=== PATIENT | male | born 1955 | race Caucasian/White ===

== ENCOUNTER → 2017-06-10 | Outpatient (CLI) | payer OTHER ==
[~2017-06-10] MED LIST: ZYVOX600 MG PO
--- NOTE | 2017-06-10 17:12 | Diagnostic Imaging Report ---
PROCEDURE:X-RAY ABDOMEN - KUB COMPARISON:KUB 01/01/2017 INDICATIONS:HISTORY OF KIDNEY STONES FINDINGS: There is a non-obstructed bowel-gas pattern. There are no calcifications projected over the renal shadows, expected course of the ureters or bladder. There are no acute osseous abnormalities. The lung bases are clear. CONCLUSION: Normal abdominal radiograph. Dictated by: Jose Alfredo Pickard M.D. on 06/10/2017 at 17:12 Electronically approved by: Jose Alfredo Pickard M.D. on 06/10/2017 at 17:12
== END ==
LOC: RAD 16:27
PROVIDERS: ATTEND Urology
DX: N20.0 Calculus of kidney (principal)
CPT/HCPCS: 74018

== ENCOUNTER → 2017-08-14 | Outpatient (CLI) | payer OTHER ==
--- NOTE | 2017-08-14 09:06 | Diagnostic Imaging Report ---
TECHNIQUE: Magnetic resonance imaging of the LEFT KNEE was performed WITHOUT injected contrast. HISTORY: Left knee pain COMPARISON: None available. FINDINGS: LIGAMENTS AND TENDONS: ACL: Intact PCL: Intact Collateral ligaments: Intact Iliotibial band: Unremarkable Popliteal tendon: Intact Extensor mechanism: Intact JOINT: Menisci: Medial: Degenerative signal. Degeneration and partial tearing of the posterior root attachment coronal image 17 and axial image 22. Lateral: Degenerative signal without discrete tear. Articular Cartilage: Medial Compartment: Cartilage thinning without focal defect. Lateral Compartment: Cartilage thinning without focal defect Patellofemoral Compartment: Cartilage thinning without focal defect. Joint Fluid: The amount of fluid within the joint is within physiologic limits. BONE: No focal or infiltrative bone marrow replacing abnormality. No acute fracture. SOFT TISSUES: Otherwise, unremarkable. IMPRESSION: Medial meniscus posterior root attachment degeneration and partial tearing. Tricompartmental partial thickness cartilage loss. Signed by: Dr. Napoleon Green M.D. on 08/14/2017 9:02 AM
== END ==
LOC: MRI 07:20
PROVIDERS: ATTEND Specialist
DX: S83.242A Other tear of medial meniscus, current injury, left knee, initial encounter (principal)

== ENCOUNTER → 2017-08-26 | Day surgery (SDC) | payer OTHER ==
[2017-08-25 16:07] LABS: ANION GAP 14.7 mmol/L (8-16); BLOOD UREA NITROGEN 9 mg/dL (7-26); BUN/CREATININE RATIO 11 (6-25); CALCIUM 9.8 mg/dL (8.4-10.2); CARBON DIOXIDE 27 mmol/L (22-29); CHLORIDE 105 mmol/L (98-107); CREATININE, SERUM 0.79 mg/dL (0.72-1.25); EST GLOMERULAR FILTRATION RATE > 60 ML/MIN (60-); GLUCOSE 96 mg/dL (74-118); POTASSIUM 4.7 mmol/L (3.5-5.1); SODIUM 142 mmol/L (136-145)
--- NOTE | 2017-08-25 16:37 | Diagnostic Imaging Report ---
PROCEDURE: Frontal and lateral views of the chest. COMPARISON: Patients [facility], , CHEST 2 VIEWS, 03/09/2013, 22:21. INDICATIONS: PRE-OPERATIVE CHEST X-RAY FOR LEFT KNEE SURGERY FINDINGS: Lines/tubes: None. Lungs: The lungs are well inflated and clear. There is no evidence of pneumonia or pulmonary edema. Pleura: There is no pleural effusion or pneumothorax. Heart and mediastinum: The heart and the mediastinum are normal. Bones: No acute bony abnormality. IMPRESSION: 1. No acute cardiopulmonary abnormalities. Matthew Herrera M.D. Dictated by: Matthew Herrera M.D. on 08/25/2017 at 16:40 Electronically approved by: Matthew Herrera M.D. on 08/25/2017 at 16:40
[~2017-08-26] MED LIST changes: +AREDS PO; +BUPIVACAINE 0.25% 30ML SDV INJ ONE; +BUPIVACAINE 0.25%/EPI 30ML SDV INJ ONE; +BUPIVACAINE 0.5%/EPI 30 ML SDV INJ ONE; +CEFAZOLIN SOD 2 GM/D5W 50ML 0 ML IV ONE; +CLINDAMYCIN PHOS 900MG/ D5W 50 50 ML IV ONE; +DEXAMETHASONE SOD PHOS INJ 4 MG/ML VIAL ONE; +FENTANYL CITRATE/PF 100MCG/2 ML INJ ONE; +HYDROCHLOROTHIA25 MG PO; +KETOROLAC TROMETHAMINE 30 MG/ML VIAL ONE; +LIDOCAINE HCL 1% LOCAL INJ 20 ML VIAL ONE; +MIDAZOLAM HCL 2 MG/2 ML VIAL ONE; +ONDANSETRON HCL INJ 2 MG/ML VIAL ONE; +PROPOFOL IV EMULSION 10 MG/ML 20 ML VIAL ONE; +SEVOFLURANE INHAL SOLN 250 ML PEN BTL ONE; +STENDRA PO
--- OUTSIDE RECORDS SUMMARY | 2017-08-26 05:35 | XMS REPORT ---
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 Allergies, Adverse Reactions, Alerts This patient has no known allergies or adverse reactions. Medications This patient has no known medications. Results Test Description Test Time Test Comments Text Results Atomic Results Result Comments CHEST 2 VIEWS [facility] [address] [address] Patient Name: MIRLANDE STARR MR #: [id number] : 1955 Age/Sex: 61/M Req #: [id number] Adm Physician: Ordered by: WAYNE WINTERS MD Report #: [id number] Location: OR Room/Bed: Procedure: [id number] DX/CHEST 2 VIEWS Exam Date: 08/25/17 Exam Time: 1550 REPORT STATUS: Signed PROCEDURE: Frontal and lateral views of the chest. COMPARISON: [facility], , CHEST 2 VIEWS, 2012, 22:21. INDICATIONS: PRE-OPERATIVE CHEST X-RAY FOR LEFT KNEE SURGERY FINDINGS: Lines/tubes: None. Lungs: The lungs are well inflated and clear. There is no evidence of pneumonia or pulmonary edema. Pleura: There is no pleural effusion or pneumothorax. Heart and mediastinum: The heart and the mediastinum are normal. Bones: No acute bony abnormality. IMPRESSION: 1. No acute cardiopulmonary abnormalities. Lv Herrera M.D. Dictated by: Lv Herrera M.D. on 08/25/2017 at 16:40 Electronically approved by: Lv Herrera M.D. on 08/25/2017 at 16:40 Dictated By: LV HERRERA MD 1640 Transcribed By: MIRNA on 08/25/17 1640 COPY TO: WAYNE WINTERS MD MRI KNEE LEFT WO [address] [place] [address] Patient Name: MIRLANDE STARR MR #: [id number] : 1955 Age/Sex: 61/M Req #: [id number] Adm Physician: Ordered by: WAYNE WINTERS MD Report #: [id number] Location: MRI Room/Bed: Procedure: [id number] MRI/MRI KNEE LEFT WO Exam Date: Exam Time: REPORT STATUS: Signed TECHNIQUE: Magnetic resonance imaging of the LEFT KNEE was performed WITHOUT injected contrast. HISTORY: Left knee pain COMPARISON: None available. FINDINGS: LIGAMENTS AND TENDONS: ACL: Intact PCL: Intact Collateral ligaments: Intact Iliotibial band: Unremarkable Popliteal tendon: Intact Extensor mechanism: Intact JOINT: Menisci: Medial: Degenerative signal. Degeneration and partial tearing of the posterior root attachment coronal image 17 and axial image 22. Lateral: Degenerative signal without discrete tear. Articular Cartilage: Medial Compartment: Cartilage thinning without focal defect. Lateral Compartment: Cartilage thinning without focal defect Patellofemoral Compartment: Cartilage thinning without focal defect. Joint Fluid: The amount of fluid within the joint is within physiologic limits. BONE: No focal or infiltrative bone marrow replacing abnormality. No acute fracture. SOFT TISSUES: Otherwise, unremarkable. IMPRESSION: Medial meniscus posterior root attachment degeneration and partial tearing. Tricompartmental partial thickness cartilage loss. Signed by: Dr. Tony Singh M.D. on 08/14/2017 9:02 AM Dictated By: TONY SINGH MD 1 Transcribed By: ALICIA on 08/14/17901 COPY TO: WAYNE WINTERS MD ABDOMEN-1VIEW (KUB) [address] [place] [address] Patient Name: MIRLANDE STARR MR #: [id number] : 1955 Age/Sex: 61/M Req #: [id number] Adm Physician: Ordered by: RUBA MAYORGA MD Report #: [id number] Location: [facility] Room/Bed: Procedure: [id number] DX/ABDOMEN-1VIEW (KUB) Exam Date: Exam Time: REPORT STATUS: Signed PROCEDURE: X-RAY ABDOMEN - KUB COMPARISON: KUB 01/01/2017 INDICATIONS: HISTORY OF KIDNEY STONES FINDINGS: There is a non-obstructed bowel-gas pattern. There are no calcifications projected over the renal shadows, expected course of the ureters or bladder. There are no acute osseous abnormalities. The lung bases are clear. CONCLUSION: Normal abdominal radiograph. Dictated by: Winston Sommer M.D. on 06/10/2017 at 17:12 Electronically approved by: Winston Sommer M.D. on 06/10/2017 at 17:12 Dictated By: WINSTON SOMMER MD 11 Transcribed By: MIRNA on 06/10/171711 COPY TO: RUBA MAYORGA MD ABDOMEN-1VIEW (KUB) [facility] [address] [address] Patient Name: MIRLANDE STARR MR #: [id number] : 1955 Age/Sex: 61/M Req #: [id number] Adm Physician: Ordered by: RUBA MAYORGA MD Report #: [id number] Location: [facility] Room/Bed: Procedure: [id number] DX/ABDOMEN-1VIEW (KUB) Exam Date: 01/01/17 Exam Time: 1711 REPORT STATUS: Signed PROCEDURE: X-RAY ABDOMEN - KUB COMPARISON: [facility], DX, ABDOMEN-1VIEW ( KUB), 12/25/2015, 17:11. [facility], DX, ABDOMEN-1VIEW (KUB), 07/30/2016, 17:26. INDICATIONS: RENAL STONES FINDINGS: There is a non-obstructed bowel-gas pattern. There are no calcifications projected over the renal shadows, expected course of the ureters or bladder. No acute osseous abnormalities. Stable pelvic phleboliths. CONCLUSION: No radiographic evidence of urolithiasis. Lv Herrera M.D. Dictated by: Lv Herrera M.D. on 01/01/2017 at 17:41 Electronically approved by: Lv Herrera M.D. on 01/01/2017 at 17:41 Dictated By: LV HERRERA MD 40 Transcribed By: MIRNA on 01/01/171740 COPY TO: RUBA MAYORGA MD
--- NOTE | 2017-08-27 08:52 | Operative Report ---
DATE OF PROCEDURE: August 26, 2017 PREOPERATIVE DIAGNOSES 1. Left medial meniscus tear. 2. Left knee degenerative joint disease of the knee. POSTOPERATIVE DIAGNOSES 1. Left medial meniscus tear. 2. Left knee degenerative joint disease of the knee. OPERATIONS/PROCEDURES PERFORMED 1. The patient underwent a left knee examination under anesthesia. 2. Left knee arthroscopy. 3. Left knee partial medial meniscectomy. 4. Left knee chondroplasty of the patella, trochlea, medial femoral condyle, medial tibial plateau, and the lateral tibial plateau. ASSISTANT STATISTICIAN: None. ANESTHESIA: General endotracheal intubation anesthesia. IV FLUIDS: Per the anesthesia record. BLOOD LOSS: Less than 10 mL. BRIEF DESCRIPTION OF THE PATIENT'S OPERATIVE PROCEDURE: Mr. Hatfield was taken to the operating room and placed in the supine position on the operating table. Following induction of general anesthesia, as well as endotracheal intubation, the patient's left lower extremity was examined under anesthesia. He was found to have a mild effusion within the knee joint, but an otherwise ligamentously stable knee. The patient's lower extremity was prepped and draped in the standard surgical fashion. A 2-portal technique was used to provide this patient arthroscopic evaluation of the knee joint. Examination of the suprapatellar pouch, medial and lateral gutters found no evidence of loose bodies. There was, however, evidence of chondromalacia of the patellar and trochlear surfaces. Scope was advanced to the medial compartment. Examination of the medial compartment demonstrated a torn medial meniscus. There also chondromalacia of the articulating surfaces. A combination of biting forceps and motorized shaver were used to resect the torn portion of the meniscus. Chondroplasties of the medial femoral condyle and medial tibial plateau were performed at this time. The scope was advanced in the intercondylar notch. The anterior cruciate ligament identified and found to be intact. Scope was then advanced to the lateral compartment. Chondromalacia of the lateral tibia plateau was encountered. A chondroplasty of the surface was performed. The scope was then placed in the suprapatellar pouch, and chondroplasty of patella and trochlea performed. The knee was then deflated of its sterile normal saline. Each of the portal sites were closed using 4-0 nylon suture. The portal sites as well as the knee itself was injected with 0.5% Marcaine with epinephrine. Sterile dressings were applied. The patient was awakened and taken to the postanesthesia care unit in stable condition. Job#: [id number] JAH
== END | disposition home or self-care (01) ==
LOC: OR 05:34
PROVIDERS: ATTEND Specialist
DX: S83.222A Peripheral tear of medial meniscus, current injury, left knee, initial encounter (principal); M17.12 Unilateral primary osteoarthritis, left knee; M22.42 Chondromalacia patellae, left knee; H35.30 Unspecified macular degeneration; N20.0 Calculus of kidney; X58.XXXA Exposure to other specified factors, initial encounter; Z88.0 Allergy status to penicillin; Z01.810 Encounter for preprocedural cardiovascular examination; Z01.812 Encounter for preprocedural laboratory examination; Z01.818 Encounter for other preprocedural examination; Z68.39 Body mass index [BMI] 39.0-39.9, adult; Z87.891 Personal history of nicotine dependence
CPT/HCPCS: 29881; 36415; 71046; 80048; 93005; J1100; J1885; J2001; J2250; J2405

== ENCOUNTER → 2018-02-25 | Outpatient (CLI) | payer OTHER ==
[~2018-02-25] MED LIST changes: -BUPIVACAINE 0.25% 30ML SDV INJ ONE; -BUPIVACAINE 0.25%/EPI 30ML SDV INJ ONE; -BUPIVACAINE 0.5%/EPI 30 ML SDV INJ ONE; -CEFAZOLIN SOD 2 GM/D5W 50ML 0 ML IV ONE; -CLINDAMYCIN PHOS 900MG/ D5W 50 50 ML IV ONE; -DEXAMETHASONE SOD PHOS INJ 4 MG/ML VIAL ONE; -FENTANYL CITRATE/PF 100MCG/2 ML INJ ONE; -KETOROLAC TROMETHAMINE 30 MG/ML VIAL ONE; -LIDOCAINE HCL 1% LOCAL INJ 20 ML VIAL ONE; -MIDAZOLAM HCL 2 MG/2 ML VIAL ONE; -ONDANSETRON HCL INJ 2 MG/ML VIAL ONE; -PROPOFOL IV EMULSION 10 MG/ML 20 ML VIAL ONE; -SEVOFLURANE INHAL SOLN 250 ML PEN BTL ONE
--- NOTE | 2018-02-25 16:11 | Diagnostic Imaging Report ---
RADIOGRAPH(S) OF THE ABDOMEN AND PELVIS, 2 view(s) HISTORY: Calculus of kidney COMPARISON: None available. FINDINGS: No specific evidence of obstruction or ileus. No definite urinary tract calcification. Multiple small pelvic phleboliths. Right convex curvature of the lumbar spine. Multilevel degenerative changes, ranging from mild to moderate. The bones are partially obscured by stool and overlying bowel gas. IMPRESSION: 1. Nonobstructive bowel gas pattern. 2. No definitive urinary tract calculus, within the limitations of radiographs. Signed by: Dr. Alfie Roman D.O., M.M.M. on 02/25/2018 4:07 PM
== END ==
LOC: RAD 14:44
PROVIDERS: ATTEND Urology
DX: N20.0 Calculus of kidney (principal)
CPT/HCPCS: 74018

== ENCOUNTER → 2018-12-27 | Outpatient (CLI) | payer OTHER ==
--- NOTE | 2018-12-27 15:46 | Diagnostic Imaging Report ---
Exam: KUB - 2 views Indication: Renal calculi Comparison: KUB of 02/25/2018 Findings: No radiographically apparent renal calculi. Nonobstructive bowel gas pattern. No free air. Degenerative changes of the visualized spine. Phleboliths in the pelvis. Impression: No radiographic apparent renal calculi. Signed by: Davian Chacon MD on 12/27/2018 3:43 PM
== END ==
LOC: RAD 14:43
PROVIDERS: ATTEND Urology
DX: N20.0 Calculus of kidney (principal)
CPT/HCPCS: 74018

== ENCOUNTER → 2019-10-18 | Outpatient (CLI) | payer OTHER ==
--- NOTE | 2019-10-18 09:04 | Diagnostic Imaging Report ---
X-ray abdomen KUB History: Right kidney stones Comparison: Similar studies 12/27/2018 and 02/25/2018 Findings: No calculi seen on this exam. Pelvic phleboliths are visualized. Nonobstructive bowel gas pattern. Lung bases clear. Degenerative changes of the lumbar spine with 5 lumbar type vertebrae. Impression: No radiopaque calculi seen on this exam. Signed by: Rafa Hay MD on 10/18/2019 9:00 AM
== END ==
LOC: RAD 08:30
PROVIDERS: ATTEND Urology
DX: N20.0 Calculus of kidney (principal)
CPT/HCPCS: 74018

== ENCOUNTER → 2020-07-03 | Outpatient (CLI) | payer MEDICARE | LOC: RAD 09:08 | PROVIDERS: ATTEND Urology | DX: N20.0 Calculus of kidney (principal) | CPT/HCPCS: 74018 ==

== ENCOUNTER → 2021-04-17 | Outpatient (CLI) | payer MEDICARE | LOC: RAD 09:33 | PROVIDERS: ATTEND Urology | DX: N20.0 Calculus of kidney (principal) | CPT/HCPCS: 74018 ==

== ENCOUNTER → 2021-09-24 | Outpatient (CLI) | payer MEDICARE | LOC: RAD 08:13 | PROVIDERS: ATTEND Urology | DX: N20.0 Calculus of kidney (principal) | CPT/HCPCS: 74018 ==

== ENCOUNTER → 2024-04-04 | Outpatient (REF) | payer MEDICARE | LOC: CT 07:19 | PROVIDERS: ATTEND Urology | DX: N20.0 Calculus of kidney (principal); K76.0 Fatty (change of) liver, not elsewhere classified; K57.30 Diverticulosis of large intestine without perforation or abscess without bleeding | CPT/HCPCS: 74176 ==

== ENCOUNTER → 2024-08-10 | Outpatient (REF) | payer MEDICARE | LOC: RAD 10:28 | PROVIDERS: ATTEND Urology | DX: N20.0 Calculus of kidney (principal) | CPT/HCPCS: 74018 ==